=== PATIENT | female | born 1970 | race Caucasian/White ===

== ENCOUNTER → 2018-07-27 22:02 | Outpatient (CLI) | payer BC ==
[2012-01-04 05:54] VITALS: BMI 28.9
== END | disposition home or self-care (01) ==
LOC: D.MAMMO 11:15
DX: Z12.31 Encounter for screening mammogram for malignant neoplasm of breast (principal)

== ENCOUNTER 2018-08-12 22:21 | Outpatient (CLI) | payer BC ==
[2012-01-04 05:54] VITALS: BMI 28.9
== END 2018-08-12 23:59 | disposition home or self-care (01) ==
LOC: D.MAMMO 22:21
DX: R92.8 Other abnormal and inconclusive findings on diagnostic imaging of breast (principal)

== ENCOUNTER → 2019-09-25 10:15 | Outpatient (CLI) | payer BC ==
[2012-01-04 05:54] VITALS: BMI 28.9
[2019-09-25 11:08] LABS: BASOPHILS 0 % (0-2); EOSINOPHILS 1.5 % (0-7); HEMOGLOBIN 13.3 g/dL (12-16); IMMATURE GRANULOCYTES 0.2 % (0-5); LYMPHOCYTES 29.7 % (15-50); MCH 30.7 pg (26.0-34.0); MCHC 33.3 g/dL (31.0-37.0); MCV 92.4 fL (80.0-100.0); MEAN PLATELET VOLUME 10.5 fL (7.4-10.4); MONOCYTES 5.9 % (2-11); NEUTROPHILS 62.7 % (40-80); PLATELET COUNT 187 10x3/uL (130-400); RBC 4.33 10x6/uL (4.00-5.40); RDW 12.2 % (11.5-14.5); WBC 4.8 10x3/uL (4.8-10.8)
[2019-09-25 11:24] LABS: T4 THYROXINE 11.1 ug/dL (4.7-13.3); THYROID STIMULATING HORMONE 0.78 uIU/mL (0.36-3.74)
== END | disposition home or self-care (01) ==
LOC: D.US 10:15
PROVIDERS: ATTEND Surgery
DX: E04.1 Nontoxic single thyroid nodule (principal); R22.1 Localized swelling, mass and lump, neck

== ENCOUNTER → 2019-09-28 07:41 | Outpatient (CLI) | payer BC ==
[2012-01-04 05:54] VITALS: BMI 28.9
== END | disposition home or self-care (01) ==
LOC: D.MRI 07:41
PROVIDERS: ATTEND Family Medicine
DX: M53.3 Sacrococcygeal disorders, not elsewhere classified (principal)

== ENCOUNTER → 2019-10-13 07:27 | Outpatient (CLI) | payer BC ==
[2012-01-04 05:54] VITALS: BMI 28.9
== END | disposition home or self-care (01) ==
LOC: D.US 07:27
PROVIDERS: ATTEND Surgery
DX: E04.1 Nontoxic single thyroid nodule (principal)

== ENCOUNTER 2020-07-17 15:30 | Outpatient (CLI) | payer BC ==
[2012-01-04 05:54] VITALS: BMI 28.9
== END 2020-07-17 23:59 | disposition home or self-care (01) ==
LOC: D.MAMMO 15:30
PROVIDERS: ATTEND Obstetrics & Gynecology
DX: Z12.31 Encounter for screening mammogram for malignant neoplasm of breast (principal)

== ENCOUNTER → 2020-07-22 11:19 | Outpatient (CLI) | payer BC ==
[2012-01-04 05:54] VITALS: BMI 28.9
== END | disposition home or self-care (01) ==
LOC: D.MAMMO 11:19
PROVIDERS: ATTEND Obstetrics & Gynecology
DX: R92.8 Other abnormal and inconclusive findings on diagnostic imaging of breast (principal)

== ENCOUNTER 2021-01-23 05:13 | Day surgery (SDC) | payer BC ==
[2021-01-22 12:00] LABS: UDS - AMPHET NEGATIVE QUAL (NEGATIVE); UDS - BARB NEGATIVE QUAL (NEGATIVE); UDS - BENZO NEGATIVE QUAL (NEGATIVE); UDS - COCAINE NEGATIVE QUAL (NEGATIVE); UDS - OPIATE NEGATIVE QUAL (NEGATIVE); UDS - PCP NEGATIVE QUAL (NEGATIVE); UDS - THC NEGATIVE QUAL (NEGATIVE)
[2021-01-22 12:05] LABS: BASOPHILS 0.2 % (0-2); EOSINOPHILS 1.9 % (0-7); HEMATOCRIT 38.4 % (36.0-48.0); HEMOGLOBIN 12.7 g/dL (12-16); LYMPHOCYTE ABS# 1.63 10x3/uL (1.18-3.74); LYMPHOCYTES 38.6 % (15-50); MCH 29.7 pg (26.0-34.0); MCHC 33.1 g/dL (31.0-37.0); MCV 89.9 fL (80.0-100.0); MEAN PLATELET VOLUME 10.2 fL (7.4-10.4); MONOCYTES 9.2 % (2-11); NEUTROPHIL ABS# 2.11 10x3/uL (1.56-6.13); NEUTROPHILS 50.1 % (40-80); PLATELET COUNT 187 10x3/uL (130-400); RBC 4.27 10x6/uL (4.00-5.40); RDW 13.1 % (11.5-14.5); WBC 4.2 10x3/uL (4.8-10.8)
[2021-01-22 12:07] LABS: CALC OSMOLALITY 274 mosm/kg (275-300); CALCIUM 8.7 mg/dL (8.5-10.1); CARBON DIOXIDE 28.9 mmol/L (21.0-32.0); CHLORIDE - SERUM 105 mmol/L (98-107); CREATININE - SERUM 0.8 mg/dL (0.6-1.3); GLUCOSE 98 mg/dL (74-106); POTASSIUM - SERUM 4.1 mmol/L (3.5-5.1); SARS-CoV-2 ANTIGEN NEGATIVE- SARS-COV-2 (NEGATIVE); SODIUM 138 mmol/L (136-145); UREA NITROGEN 9 mg/dL (7-18); eGFR NON AFRICAN AMERICAN 81 mL/min (90-120)
[~2021-01-23] VITALS: Ht 170.2 cm; Wt 91.2 kg
--- NOTE | ~2021-01-23 | OP ---
PATIENT NAME: GRAYSON REYNOLDS MEDICAL RECORD: [id number] :72 LOCATION:D[facility] ADMISSION DATE: SURGEON: JEFFRY HALL MD DATE OF OPERATION: 01/23/2021 PREOPERATIVE DIAGNOSIS: Dysfunctional uterine bleeding. POSTOPERATIVE DIAGNOSES: 1. Dysfunctional uterine bleeding. 2. Suspect adenomyosis. PROCEDURES: 1. vNOTES hysterectomy. 2. Bilateral salpingectomy. 3. Left oophorectomy. 4. Shah's culdoplasty and vault suspension. 5. Cystoscopy. SURGEON: Jeffry Hall MD CLEAT THROWER: Kilo Mckeon DO ANESTHESIOLOGIST: Dr. Mejia. FIELDWORK COORDINATOR: Anne-Marie Damon. ANESTHETIC: General. FINDINGS: Uterus is enlarged and boggy. Both ovaries are unremarkable and tubes were unremarkable as well. At the time of the cystoscopy, a good efflux of urine from both left and right ureter. Uterus has a first-degree prolapse. SPECIMEN REMOVED: Uterus with bilateral tubes and left ovary. SPECIMEN DISPOSITION: Pathology. ESTIMATED BLOOD LOSS: Less than or equal to 150 cc. FLUIDS: 1300 cc of lactated Ringer's. URINE OUTPUT: 575 cc of clear urine. COMPLICATIONS: None. DRAINS: Babcock to gravity. INDICATION: The patient is a 50-year-old female with heavy periods and also associated with dyspareunia and pelvic pain. The patient has been counseled and desires definitive treatment. DESCRIPTION OF PROCEDURE: After informed consent was given, the patient was taken to the operating room where anesthetic was obtained. The patient was placed in the [facility] stirrups and prepped abdominally as well as vaginally. After being draped the weighted speculum was introduced, the cervix was identified, and circumferentially injected with 0.25% Marcaine with epinephrine. OPERATIVE REPORT [id number] GRAYSON REYNOLDS Using a Bovie cautery, the mucosa of the vaginal vault was incised over the cervix. This begins the bladder flap reflection anteriorly concluding at the posterior aspect above the cul-de-sac. The cul-de-sac was now entered sharply and the peritoneum tagged to the mucosa. This opening was widened and both uterosacral ligaments were isolated with [place] clamps, cut and stick tied. Dissection continued anteriorly until the anterior pouch was entered. Through this pouch a retractor was inserted. The GelPOINT ring is now prepared and the internal ring inserted. Posterior rings inserted and the retractor tightened. The cap was applied to the GelPOINT and pneumoperitoneum developed. Using a Thunderbeat coagulation cutter and starting on the patient's left hand side, the uterine vasculature and cardinal ligaments were compressed, coagulated, and . This dissection was carried up the left side of the uterus until the round ligament was encountered. The dissection now starts on the patient's right and begins at the right uterine vascular bundle. Dissection was carried up across the round and uteroovarian ligaments. The uterus is inverted and the remaining attachment of the uterus to the adnexa on the left side was taken down. Left tube was now removed followed by the right. Both of the tubes were placed at the most proximal section of the GelPOINT retractor. After visualization of the left ovary its position after removing medial support places at low on the pelvic sidewall and the decision was made to remove the ovary. The ovary was removed by compressing, coagulating, and the infundibulopelvic ligament. The ureters had been identified on both left and right sides. Both tubes, the left ovary and uterus were now removed. Pneumoperitoneum being reestablished, the vaginal vault was irrigated and irrigant removed. Cystoscopy was performed after release of the pneumoperitoneum and the ring being removed. The right ureter quickly shows efflux of blue-tinged urine from the methylene blue given. The left ureter shows efflux after 15-20 minutes of waiting. The cystoscopy was discontinued and the vaginal vault closed. The vault is closed in an anterior and posterior fashion after placing a Shah's stitch. The Shah stitch was placed first from the left of the midline, taken across the peritoneum of the left cul-de-sac and into the left uterosacral ligament. The stitch is now taken back across the posterior cul-de-sac and into the right uterosacral ligament. Applying one more stitch at the peritoneum between the uterosacral ligament and the apex of the vaginal cuff, it is then passed through right of midline. Closure was completed and then the Shah's tied to allow apical support to the vaginal vault. The patient was awakened and went to the recovery room in stable condition. The sponge, lap and needle counts were correct times 2. TRANSINT:[id number] Voice Confirmation ID: [id number] DOCUMENT ID: [id number] JEFFRY HALL MD CC: [id number] DICTATION DATE: 01/23/21 1047 FILM DEVELOPING MACHINE OPERATOR: 01/23/21 1131 [place] [id number] [place] [id number]
[~2021-01-23 05:13] MED LIST: LISINOPRIL5 MG PO
[2021-01-23 05:49] VITALS: BP 144/83; Ht 170.2 cm; Wt 91.2 kg
[2021-01-23 06:02] LABS: HCG URINE NEGATIVE (NEGATIVE)
--- NOTE | 2021-01-23 16:55 | NUR ---
1430 PT AMBULATED TO BR AND VOIDED WITHOUT DIFFICULTY. STATED SHE FELT NO PRESSURE AFTER VOIDING AND FELT THOUGH IT WAS A THOROUGH VOID. STATES PAIN IS UNDER CONTROL AND WISHES TO GO HOME. IV D/C'D WITH CANNULA INTACT, PRESSURE HELD AND DRESSING PLACED. DISCHARGE INSTRUCTIONS GIVEN. PERIPAD WITH SCANT SEROSAINGUINOUS DRAINAGE.
== END 2021-01-23 15:00 | disposition home or self-care (01) ==
LOC: D.OPS 05:13
PROVIDERS: ATTEND Obstetrics & Gynecology
DX: N93.8 Other specified abnormal uterine and vaginal bleeding (principal); I10 Essential (primary) hypertension; N94.10 Unspecified dyspareunia

== ENCOUNTER 2021-04-01 16:00 | Outpatient (CLI) | payer BC ==
[2021-01-23 05:49] VITALS: BMI 31.5
== END 2021-04-01 23:59 | disposition home or self-care (01) ==
LOC: D.MAMMO 16:00
PROVIDERS: ATTEND Obstetrics & Gynecology
DX: R92.8 Other abnormal and inconclusive findings on diagnostic imaging of breast (principal)